=== PATIENT | male | born 1955 | race Caucasian/White ===

== ENCOUNTER 2017-04-01 11:32 | Emergency (ER) | payer BC ==
[2017-04-01 14:56] VITALS: BP 133/86
--- NOTE | 2017-04-01 15:07 | UC ---
Throat Pain/Nasal Todd HPI - HPI Summary HPI Summary: 61 [address] x 3 days no f/c no JOSE or myalgias no cough/CP or SOB - History of Current Complaint Chief Complaint: UCRespiratory Stated Complaint: SORE THROAT,RIGHT EAR Time Seen by Provider: 04/01/17 15:01 Hx Obtained From: Patient Onset/Duration: Gradual Onset, Lasting Days Severity: Mild Pain Intensity: 3 Pain Scale Used: 0-10 Numeric - Epiglottits Risk Factors Epiglottis Risk Factors: Negative - Allergies/Home Medications Allergies/Adverse Reactions: Allergies Allergy/AdvReac Type Severity Reaction Status Date / Time No Known Allergies Allergy Verified 04/01/17 14:57 PMH/Surg Hx/FS Hx/Imm Hx Previously Healthy: Yes - DUSTIN - Surgical History Surgical History: Yes Surgery Procedure, Year, and Place: tonsilectomy - Family History Known Family History: Positive: Hypertension - Social History Alcohol Use: Occasionally Substance Use Type: None Smoking Status (MU): Never Smoked Tobacco Review of Systems Constitutional: Negative Skin: Negative Eyes: Negative ENT: Sore Throat Respiratory: Negative Cardiovascular: Negative Gastrointestinal: Negative Genitourinary: Negative Motor: Negative Neurovascular: Negative Musculoskeletal: Negative Neurological: Negative Psychological: Negative Is Patient Immunocompromised?: No All Other Systems Reviewed And Are Negative: Yes Physical Exam Triage Information Reviewed: Yes Appearance: Well-Appearing, No Pain Distress, Well-Nourished Vital Signs: Initial Vital Signs Temp 97.7 F 04/01/17 14:48 Pulse 81 04/01/17 14:48 Resp 16 04/01/17 14:48 BP 133/86 04/01/17 14:48 Pulse Ox 96 04/01/17 14:48 Vital Signs Reviewed: Yes Eyes: Positive: Conjunctiva Clear ENT: Positive: Hearing grossly normal, Pharyngeal erythema, TMs normal, Other - tonsils and uvula surgically absent. Negative: Nasal drainage, TM bulging, TM dull, TM red, Tonsillar swelling, Tonsillar exudate, Trismus, Muffled voice, Hoarse voice Neck: Positive: Supple, Nontender, No Lymphadenopathy Respiratory: Positive: Lungs clear, Normal breath sounds, No respiratory distress, No accessory muscle use Cardiovascular: Positive: RRR, No Murmur Musculoskeletal: Positive: ROM Intact, No Edema Neurological: Positive: Alert Psychological Exam: Normal Skin Exam: Normal Throat Pain/Nasal Course/Dx - Course Course Of Treatment: strep (-) - Differential Dx/Diagnosis Provider Diagnoses: pharyngitis Discharge - Discharge Plan Condition: Stable Disposition: HOME Patient Education Materials: Pharyngitis (ED) Referrals: Yanci ASH,Clement Hauser [Primary Care Provider] - 5 Days (if not better) Additional Instructions: strep (-)
== END 2017-04-01 15:30 | disposition home or self-care (01) ==
LOC: UCCORT 11:32
DX: J02.9 Acute pharyngitis, unspecified (principal)
CPT/HCPCS: 87651; 99211; G0463

== ENCOUNTER 2017-04-08 09:04 | Emergency (ER) | payer BC ==
[2017-04-08 10:00] VITALS: BP 135/83
--- NOTE | 2017-04-08 10:13 | UC ---
Eye Complaint HPI - HPI Summary HPI Summary: bilateral eye redness x 4 day + discharge, no eye pain , no change in vision , no photophobia - History of Current Complaint Chief Complaint: UCEye Stated Complaint: EYE COMPLAINT Time Seen by Provider: 04/08/17 10:03 Hx Obtained From: Patient Onset/Duration: Gradual Onset, Lasting Days - 4, Still Present Timing: Constant Severity Initially: Moderate Severity Currently: Moderate Pain Intensity: 0 Location of Injury: Conjunctiva - bilateral Aggravating Factor(s): Nothing Alleviating Factor(s): Nothing Associated Signs And Symptoms: Negative: Photophobia, Drainage (Clear), Drainage (Purulent), Vision Impairment Bilateral, Vision Impairment Right, Vision Impairment Left, Fever, Swelling - Allergies/Home Medications Allergies/Adverse Reactions: Allergies Allergy/AdvReac Type Severity Reaction Status Date / Time No Known Allergies Allergy Verified 04/08/17 10:00 PMH/Surg Hx/FS Hx/Imm Hx - Additional Past Medical History Additional PMH: Dyslipidemia Sleep Apnea - Surgical History Surgical History: Yes Surgery Procedure, Year, and Place: tonsilectomy - Family History Known Family History: Positive: Hypertension - Social History Alcohol Use: Occasionally Substance Use Type: None Smoking Status (MU): Never Smoked Tobacco Review of Systems Constitutional: Negative Skin: Negative Eyes: Drainage, Eye Redness ENT: Negative Respiratory: Negative Cardiovascular: Negative Is Patient Immunocompromised?: No All Other Systems Reviewed And Are Negative: Yes Physical Exam Triage Information Reviewed: Yes Appearance: Well-Appearing, No Pain Distress, Well-Nourished Vital Signs: Initial Vital Signs Temp 97.9 F 04/08/17 09:53 Pulse 72 04/08/17 09:53 Resp 14 04/08/17 09:53 BP 135/83 04/08/17 09:53 Pulse Ox 97 04/08/17 09:53 Vital Signs Reviewed: Yes Eyes: Positive: Conjunctiva Inflamed - bilateral, Discharge - bilateral ENT: Positive: Normal ENT inspection, Hearing grossly normal, Pharynx normal. Negative: Nasal congestion, Nasal drainage Neck: Positive: Supple, Nontender, No Lymphadenopathy Respiratory: Positive: Chest non-tender, Lungs clear, Normal breath sounds Cardiovascular: Positive: RRR, No Murmur, Pulses Normal Eye Complaint Course/Dx - Differential Dx/Diagnosis Provider Diagnoses: conjunctivitis bilateral Discharge - Discharge Plan Condition: Stable Disposition: HOME Prescriptions: Tobramycin 0.3% OPHTH.DOMINGUEZ* 1 drop BOTH EYES Q4H #1 btl Patient Education Materials: Conjunctivitis (ED) Referrals: Yanci ASH,Clement Hauser [Primary Care Provider] - If Needed
== END 2017-04-08 10:20 | disposition home or self-care (01) ==
LOC: UCCORT 09:04
DX: H10.9 Unspecified conjunctivitis (principal)
CPT/HCPCS: 99212; G0463